=== PATIENT | male | born 1980 | race Caucasian/White ===

== ENCOUNTER 2021-05-31 20:15 | Emergency (ER) | payer MEDICAID ==
[~2021-05-31] VITALS: Ht 167.6 cm; Wt 90.3 kg
[2021-05-31 20:57] LABS: BACTERIA,URINE FEW /HPF (0-FEW); BILIRUBIN,URINE NEG (NEG); CLARITY,URINE HAZY; COLOR,URINE YELLOW; GLUCOSE,URINE NEG (NEG); NITRITE,URINE NEG (NEG); RBC,URINE 0 /HPF (0-2); SQUAMOUS EPITHELIAL CELL,UR OCC /LPF; UROBILINOGEN,URINE 0.2 mg/dL (0.2 mg/dL); WBC,URINE >40 /HPF (0-4)
--- NOTE | 2021-05-31 21:06 | PHYS DOC ---
Past History Additional Past Medical Histor: GLAUCOMA (FRAN BARCENAS ELECTRONIC MAINTENANCE SUPERVISOR) Past Surgical History: No Surgical History (FRAN BARCENAS APRN) Alcohol Use: None (HUONGFRAN MISHRA APRN) Adult General Chief Complaint Chief Complaint: PAIN ON URINATION HPI HPI Patient is a 41-year-old male patient who presents to the ED today complaining of dysuria that began 2 hours prior to coming to the ED. Patient denies any hematuria. Denies any urgency or frequency. Denies any personal family history of kidney stones. Denies any fever, abdominal pain, nausea or vomiting. (HUONGMORGANElbaFRAN Costa ELECTRONIC MAINTENANCE SUPERVISOR) Review of Systems Review of Systems Constitutional: Denies fever or chills [] Eyes: Denies change in visual acuity, redness, or eye pain [] HENT: Denies nasal congestion or sore throat [] Respiratory: Denies cough or shortness of breath [] Cardiovascular: No additional information not addressed in HPI [] GI: Denies abdominal pain, nausea, vomiting, bloody stools or diarrhea [] : Reports dysuria, denies hematuria [] Musculoskeletal: Denies back pain or joint pain [] Integument: Denies rash or skin lesions [] Neurologic: Denies headache, focal weakness or sensory changes [] All other systems were reviewed and found to be within normal limits, except as documented in this note. (VICENTEFRAN Arreola APRN) Current Medications Current Medications Current Medications Medications (Trade) Dose Ordered Sig/Dave Start Time Stop Time Status Last Admin Dose Admin Ceftriaxone Sodium (Rocephin Im) 500 mg 1X ONCE 05/31/21 21:15 05/31/21 21:16 UNV (FRAN BARCENAS ELECTRONIC MAINTENANCE SUPERVISOR) Allergies Allergies Allergies Coded Allergies Type Severity Reaction Last Updated Verified No Known Drug Allergies 05/31/21 No (HUONGFRAN MISHRA ELECTRONIC MAINTENANCE SUPERVISOR) Physical Exam Physical Exam Constitutional: Well developed, well nourished, no acute distress, non-toxic appearance. [] HENT: Normocephalic, atraumatic, bilateral external ears normal, oropharynx moist, no oral exudates, nose normal. [] Eyes: PERRLA, EOMI, conjunctiva normal, no discharge. [] Neck: Normal range of motion, no tenderness, supple, no stridor. [] Cardiovascular:Heart rate regular rhythm, no murmur [] Lungs & Thorax: Bilateral breath sounds clear to auscultation [] Abdomen: Bowel sounds normal, soft, no tenderness, no masses, no pulsatile masses. [] Skin: Warm, dry, no erythema, no rash. [] Back: No tenderness, no CVA tenderness. [] Extremities: No tenderness, no cyanosis, no clubbing, ROM intact, no edema. [] Neurologic: Alert and oriented X 3, normal motor function, normal sensory function, no focal deficits noted. [] Psychologic: Affect normal, judgement normal, mood normal. [] (FRAN BARCENAS ELECTRONIC MAINTENANCE SUPERVISOR) Current Patient Data Vital Signs Vital Signs Date Time Temp Pulse Resp B/P (MAP) Pulse Ox O2 Delivery O2 Flow Rate FiO2 05/31/21 20:20 97.0 82 20 158/100 (119) 98 Room Air Lab Results Laboratory Tests Test 05/31/21 20:35 Urine Collection Type Unknown Urine Color Yellow Urine Clarity Hazy Urine pH 6.0 Urine Specific Kohler <=1.005 Urine Protein Neg (NEG-TRACE) Urine Glucose (UA) Neg mg/dL (NEG) Urine Ketones (Stick) Neg mg/dL (NEG) Urine Blood Trace (NEG) Urine Nitrite Neg (NEG) Urine Bilirubin Neg (NEG) Urine Urobilinogen Dipstick 0.2 mg/dL (0.2 mg/dL) Urine Leukocyte Esterase Large (NEG) Urine RBC 0 /HPF (0-2) Urine WBC >40 /HPF (0-4) Urine Squamous Epithelial Cells Occ /LPF Urine Bacteria Few /HPF (0-FEW) (FRAN BARCENAS ELECTRONIC MAINTENANCE SUPERVISOR) EKG EKG [] (FRAN BARCENAS ELECTRONIC MAINTENANCE SUPERVISOR) Radiology/Procedures Radiology/Procedures [] (FRAN BARCENAS ELECTRONIC MAINTENANCE SUPERVISOR) Heart Score C/O Chest Pain: N/A Risk Factors: Risk Factors: DM, Current or recent (<one month) smoker, HTN, HLP, family history of CAD, obesity. Risk Scores: Risk Factors: DM, Current or recent (<one month) smoker, HTN, HLP, family history of CAD, obesity. (FRAN BARCENAS ELECTRONIC MAINTENANCE SUPERVISOR) Course & Med Decision Making Course & Med Decision Making Pertinent Labs and Imaging studies reviewed. (See chart for details) This is a 41-year-old male patient presented to the ED today with dysuria that began 2 hours prior to coming to the ED. No concerns for STDs. UA noted for large amount of leukocytes, greater than 40 WBCs and trace amount of blood. No flank pain. Patient was given Rocephin IM in the ED and discharged on Cipro. Urine was sent for STD check. (FRAN BARCENAS APRN) Course & Med Decision Making Did not see or evaluate patient. Did not discuss patient with INSURANCE TERRITORY MANAGER. Agree with INSURANCE TERRITORY MANAGER's work-up and disposition per note. (HARSH WEINER MD) Dragon Disclaimer Dragon Disclaimer This electronic medical record was generated, in whole or in part, using a voice recognition dictation system. (FRAN BARCENAS APRN) Departure Departure: Impression: Primary Impression: Urinary tract infection Disposition: HOME / SELF CARE / HOMELESS Condition: STABLE Referrals: ANASTASIYA PICKERING MD (PCP) Follow-up with your doctor in 1 week Patient Instructions: Urinary Tract Infection Additional Instructions: You have urinary tract infection. Please complete the prescribed antibiotics. Follow-up with your own doctor in a week. Push fluids. Come back to the ED any point symptoms worsen Scripts Ciprofloxacin Hcl (CIPRO) 500 Mg Tablet 1 TAB PO BID for 7 Days, #14 TAB 0 Refills Prov: FRAN BARCENAS APRN 05/31/21 Problem Qualifiers Primary Impression: Urinary tract infection Urinary tract infection type: site unspecified Hematuria presence: with hematuria Qualified Codes: N39.0 - Urinary tract infection, site not specified; R31.9 - Hematuria, unspecified FRAN BARCENAS APRN May 31, 2021 21:06 HARSH WEINER MD May 31, 2021 21:48
[2021-05-31] MEDS ORDERED: CIPR500T94 PO (21:09)
[2021-05-31 21:15] VITALS: BP 141/89
[2021-05-31] MEDS ORDERED: cefTRIAXone IM 500 MG VIAL. IM ONE (21:15)
== END 2021-05-31 21:17 | disposition home or self-care (01) ==
LOC: ER 20:15
DX: N39.0 Urinary tract infection, site not specified (principal); R31.9 Hematuria, unspecified
CPT/HCPCS: 36415; 81001; 87086; 87491; 87591; 96372; 99283; J0696